=== PATIENT | male | born 1955 ===

== ENCOUNTER 2022-03-08 15:40 | Inpatient (IN) ==
[2022-03-08 20:47] LABS: Bacteria,Urine Few per hpf (None-Few); Basophils % 0.4 %; Bilirubin,Urine Negative (Negative); Blood,Urine Small (Negative); Clarity,Urine Clear (Clear); Color,Urine Colorless (Yellow); Eosinophils # 0.5 K/mcL (0.0-0.6); Eosinophils % 10.5 %; Glucose,Urine (UA) 200 mg/dL (Normal); Hemoglobin 9.7 g/dL (12.9-16.9); Immature Granulocytes % 0.2 % (0-4); Ketones,Urine Negative (Negative); Leukocyte Esterase,Urine Negative (Negative); Lymphocytes % 22.4 %; Mean Corpuscular HGB Conc 32.3 g/dL (31.6-35.5); Mean Corpuscular Hemoglobin 28.4 pg (28.0-33.3); Mean Corpuscular Volume 87.7 fL (83.0-100.0); Mean Platelet Volume 9.7 fL (9.4-12.4); Monocytes # 0.6 K/mcL (0.0-1.3); Monocytes % 12.9 %; Mucus,Urine Few per lpf (None-Few); Neutrophils # 2.4 K/mcL (1.6-8.9); Nitrite,Urine Negative (Negative); Platelet Count 175 K/mcL (140-400); Protein,Urine >=600 mg/dL (Neg-Trace); RBC,Urine 0-3 per hpf (0-3); Red Blood Count 3.42 M/mcL (4.19-5.50); Red Cell Distribution Width 13.2 % (11.5-14.5); Segmented Neutrophils % 53.6 %; Squamous Epithelial Cell,Urine Few per hpf (None-Few); Urobilinogen,Urine Normal (Normal); WBC,Urine 0-3 per hpf (0-3); White Blood Count 4.6 K/mcL (4.3-11.1)
[2022-03-08 20:50] LABS: VBG Ionized Calcium 1.14 mmol/L (1.15-1.35)
[2022-03-08 21:29] LABS: Bilirubin,Total 0.5 mg/dL (0.3-1.0); Globulin 4.2 g/dL (2.4-3.5); Magnesium 1.9 mg/dL (1.6-2.6); Phosphorous 3.7 mg/dL (2.7-4.5); Total Protein 8.2 g/dL (6.4-8.9); Troponin I 0.05 ng/mL (< 0.04)
[2022-03-08] MEDS ORDERED: *HR* Labetalol 20 MG/4 ML SYRINGE IVP ONE (21:39)
[2022-03-08] MEDS ORDERED: Naloxone 0.4 MG/ML INJ IVP PRN (22:00)
[2022-03-08] MEDS ORDERED: Ondansetron 4 MG/2 ML VIAL IVP PRN (22:28)
[2022-03-09] MEDS: Acetaminophen 325 MG TABLET PO PRN ×2 (01:49→14:53)
[2022-03-09] MEDS: Melatonin 3 MG TABLET PO PRN ×2 (01:50→23:51)
[2022-03-09 03:08] LABS: Basophils % 0.2 %; Eosinophils # 0.5 K/mcL (0.0-0.6); Eosinophils % 8.6 %; Hemoglobin 8.6 g/dL (12.9-16.9); Immature Granulocytes % 0.2 % (0-4); Lymphocytes # 0.9 K/mcL (0.6-4.6); Lymphocytes % 17.2 %; Mean Corpuscular HGB Conc 31.9 g/dL (31.6-35.5); Mean Corpuscular Hemoglobin 28.2 pg (28.0-33.3); Mean Corpuscular Volume 88.5 fL (83.0-100.0); Mean Platelet Volume 10.2 fL (9.4-12.4); Monocytes # 0.7 K/mcL (0.0-1.3); Monocytes % 12.4 %; Neutrophils # 3.2 K/mcL (1.6-8.9); Platelet Count 170 K/mcL (140-400); Red Blood Count 3.05 M/mcL (4.19-5.50); Segmented Neutrophils % 61.4 %; White Blood Count 5.2 K/mcL (4.3-11.1)
[2022-03-09 03:26] LABS: Calcium 8.6 mg/dL (8.6-10.3); Magnesium 1.8 mg/dL (1.6-2.6); Potassium 4.1 mEq/L (3.5-5.1)
[2022-03-09] MEDS: niCARdipine 20 MG/200 ML MLS IVC SCH ×4 (05:48→22:09)
[2022-03-09] MEDS: *HR* Heparin 5,000 UNIT/ML VIAL SQ SCH ×3 (05:52→20:21)
[2022-03-09 08:43] LABS: Troponin I 0.03 ng/mL (< 0.04)
[2022-03-09 08:49] LABS: Uric Acid 7.9 mg/dL (2.3-7.6)
[2022-03-09] MEDS: carvediloL 25 MG TABLET PO SCH ×2 (14:49→20:21)
[2022-03-09] MEDS: hydrALAZINE 25 MG TABLET PO SCH ×2 (14:49→20:20)
[2022-03-09] MEDS: cloNIDine HCL 0.1 MG TABLET PO SCH ×2 (14:49→20:21)
[2022-03-10] MEDS: niCARdipine 20 MG/200 ML MLS IVC SCH ×9 (01:32→22:29)
[2022-03-10 02:34] LABS: Basophils % 0.2 %; Eosinophils # 0.5 K/mcL (0.0-0.6); Eosinophils % 11.5 %; Hematocrit 26.2 % (37.5-50.1); Hemoglobin 8.6 g/dL (12.9-16.9); Immature Granulocytes % 0.2 % (0-4); Lymphocytes # 1.2 K/mcL (0.6-4.6); Lymphocytes % 28.4 %; Mean Corpuscular HGB Conc 32.8 g/dL (31.6-35.5); Mean Corpuscular Hemoglobin 28.5 pg (28.0-33.3); Mean Corpuscular Volume 86.8 fL (83.0-100.0); Monocytes # 0.4 K/mcL (0.0-1.3); Monocytes % 9.6 %; Neutrophils # 2.1 K/mcL (1.6-8.9); Platelet Count 174 K/mcL (140-400); Red Blood Count 3.02 M/mcL (4.19-5.50); Red Cell Distribution Width 13.1 % (11.5-14.5); Segmented Neutrophils % 50.1 %; White Blood Count 4.2 K/mcL (4.3-11.1)
[2022-03-10 02:54] LABS: Calcium 8.3 mg/dL (8.6-10.3); Potassium 4.2 mEq/L (3.5-5.1)
[2022-03-10 03:07] LABS: Thyroid Stimulating Hormone 4.594 mcIU/mL (0.340-5.600)
[2022-03-10 03:08] LABS: Triiodothyronine (T3) Free 2.8 pg/mL (2.50-3.90)
[2022-03-10] MEDS: *HR* Heparin 5,000 UNIT/ML VIAL SQ SCH ×3 (05:53→20:11)
[2022-03-10] MEDS: cloNIDine HCL 0.1 MG TABLET PO SCH ×2 (09:09→15:05)
[2022-03-10] MEDS: hydrALAZINE 25 MG TABLET PO SCH ×3 (09:10→20:07)
[2022-03-10] MEDS: amLODIPine 5 MG TABLET PO SCH (09:10)
[2022-03-10] MEDS: carvediloL 25 MG TABLET PO SCH ×2 (09:56→20:07)
[2022-03-10] MEDS: Iron Sucrose Complex 200 MG in 0.9 % Sodium Chloride 100 ML IVPB SCH (10:02)
[2022-03-10] MEDS ORDERED: *HR* Metoprolol 5 MG/5 ML VIAL IVP PRN (15:28)
[2022-03-10] MEDS ORDERED: CloNIDine Patch 0.3 MG PATCH (WEEKLY) TD SCH ×2 (16:00→21:00)
[2022-03-10] MEDS: Melatonin 3 MG TABLET PO PRN (20:23)
[2022-03-11] MEDS: niCARdipine 20 MG/200 ML MLS IVC SCH ×4 (02:30→20:49)
[2022-03-11] MEDS: *HR* Heparin 5,000 UNIT/ML VIAL SQ SCH ×3 (06:02→20:28)
[2022-03-11 06:36] LABS: Calcium 8.3 mg/dL (8.6-10.3); Potassium 4.3 mEq/L (3.5-5.1)
[2022-03-11] MEDS: hydrALAZINE 25 MG TABLET PO SCH ×3 (07:53→20:28)
[2022-03-11] MEDS: amLODIPine 5 MG TABLET PO SCH (07:53)
[2022-03-11] MEDS: carvediloL 25 MG TABLET PO SCH ×2 (07:53→20:28)
[2022-03-11] MEDS: Iron Sucrose Complex 200 MG in 0.9 % Sodium Chloride 100 ML IVPB SCH (07:55)
[2022-03-11] MEDS: cloNIDine HCL 0.1 MG TABLET PO SCH ×3 (09:57→20:28)
[2022-03-11] MEDS ORDERED: cloNIDine HCL 0.1 MG TABLET PO ONE (22:25)
[2022-03-11] MEDS: Melatonin 3 MG TABLET PO PRN (22:52)
[2022-03-12] MEDS: niCARdipine 20 MG/200 ML MLS IVC SCH ×7 (01:44→23:12)
[2022-03-12 02:55] LABS: Calcium 8.6 mg/dL (8.6-10.3); Potassium 4.5 mEq/L (3.5-5.1)
[2022-03-12] MEDS: *HR* Heparin 5,000 UNIT/ML VIAL SQ SCH ×3 (05:17→21:00)
[2022-03-12] MEDS: hydrALAZINE 25 MG TABLET PO SCH ×3 (08:30→20:59)
[2022-03-12] MEDS: amLODIPine 5 MG TABLET PO SCH (08:31)
[2022-03-12] MEDS: carvediloL 25 MG TABLET PO SCH ×2 (08:31→19:12)
[2022-03-12] MEDS ORDERED: cloNIDine HCL 0.1 MG TABLET PO SCH (09:00)
[2022-03-12] MEDS: Melatonin 3 MG TABLET PO PRN (21:00)
[2022-03-12] MEDS: Acetaminophen 325 MG TABLET PO PRN (21:00)
[2022-03-13] MEDS: *HR* Heparin 5,000 UNIT/ML VIAL SQ SCH ×3 (06:23→20:19)
[2022-03-13 06:57] LABS: Calcium 8.5 mg/dL (8.6-10.3); Potassium 4.4 mEq/L (3.5-5.1)
[2022-03-13] MEDS: 0.9 % Sodium Chloride 1,000 ML IVC SCH (08:36)
[2022-03-13] MEDS: hydrALAZINE 25 MG TABLET PO SCH ×3 (08:36→19:27)
[2022-03-13] MEDS: NIFEdipine XL (24 HR) 30 MG TAB.ER.24 PO SCH (08:36)
[2022-03-13] MEDS: carvediloL 25 MG TABLET PO SCH ×2 (09:03→20:20)
[2022-03-13] MEDS: niCARdipine 20 MG/200 ML MLS IVC SCH ×4 (09:03→21:22)
[2022-03-13] MEDS: *HR* Acetylcysteine 20% 600 MG/3 ML ORAL SYRINGE PO SCH ×2 (09:27→21:42)
[2022-03-13] MEDS: Acetaminophen 325 MG TABLET PO PRN (20:18)
[2022-03-13] MEDS: Melatonin 3 MG TABLET PO PRN (20:19)
[2022-03-14] MEDS: niCARdipine 20 MG/200 ML MLS IVC SCH ×6 (03:26→23:14)
[2022-03-14] MEDS: 0.9 % Sodium Chloride 1,000 ML IVC SCH (04:13)
[2022-03-14] MEDS: *HR* Heparin 5,000 UNIT/ML VIAL SQ SCH ×3 (04:13→20:38)
[2022-03-14 04:56] LABS: Hematocrit 26.3 % (37.5-50.1); Hemoglobin 8.5 g/dL (12.9-16.9); Mean Corpuscular HGB Conc 32.3 g/dL (31.6-35.5); Mean Corpuscular Hemoglobin 28.3 pg (28.0-33.3); Mean Corpuscular Volume 87.7 fL (83.0-100.0); Mean Platelet Volume 9.9 fL (9.4-12.4); Platelet Count 228 K/mcL (140-400); Red Cell Distribution Width 13.3 % (11.5-14.5)
[2022-03-14 05:03] LABS: White Blood Count 6.4 K/mcL (4.3-11.1)
[2022-03-14 05:12] LABS: Calcium 8.6 mg/dL (8.6-10.3); Potassium 4.7 mEq/L (3.5-5.1)
[2022-03-14] MEDS: hydrALAZINE 25 MG TABLET PO SCH ×3 (08:21→20:38)
[2022-03-14] MEDS: Isosorbide MONOnitrate (24 HR) 30 MG TAB.ER.24H PO SCH (08:21)
[2022-03-14] MEDS: carvediloL 25 MG TABLET PO SCH ×2 (08:21→20:38)
[2022-03-14] MEDS: NIFEdipine XL (24 HR) 30 MG TAB.ER.24 PO SCH (08:21)
[2022-03-14] MEDS ORDERED: Sennosides/Docusate Sodium TABLET PO PRN (21:37)
[2022-03-14] MEDS: Melatonin 3 MG TABLET PO PRN (22:18)
[2022-03-15 03:23] LABS: Calcium 8.7 mg/dL (8.6-10.3); Potassium 4.8 mEq/L (3.5-5.1)
[2022-03-15] MEDS: *HR* Heparin 5,000 UNIT/ML VIAL SQ SCH ×3 (05:35→20:58)
[2022-03-15] MEDS ORDERED: *HR* Heparin 10,000 UNIT/10 ML VIAL ONE (07:12)
[2022-03-15] MEDS ORDERED: 0.9 % Sodium Chloride 2,000 ML ONE (07:13)
[2022-03-15] MEDS ORDERED: Heparin 1,000 UNITS/500 mL 500 ML ONE (07:13)
[2022-03-15] MEDS ORDERED: Iopamidol - 300 100 ML INFUS..BTL ONE (07:13)
[2022-03-15] MEDS ORDERED: *HR* FentaNYL (PF) 100 MCG/2 ML VIAL ONE (07:35)
[2022-03-15] MEDS ORDERED: *HR* Midazolam HCl 2 MG/2 ML VIAL ONE (07:36)
[2022-03-15] MEDS: *HR* Acetylcysteine 20% 600 MG/3 ML ORAL SYRINGE PO SCH ×2 (08:41→20:58)
[2022-03-15] MEDS: carvediloL 25 MG TABLET PO SCH ×2 (08:42→19:52)
[2022-03-15] MEDS: hydrALAZINE 25 MG TABLET PO SCH ×3 (08:42→20:58)
[2022-03-15] MEDS: Isosorbide MONOnitrate (24 HR) 30 MG TAB.ER.24H PO SCH (08:42)
[2022-03-15] MEDS: NIFEdipine XL (24 HR) 30 MG TAB.ER.24 PO SCH (09:14)
[2022-03-15] MEDS: 0.9 % Sodium Chloride 1,000 ML IVC SCH (09:14)
[2022-03-15] MEDS: Acetaminophen 325 MG TABLET PO PRN (13:20)
[2022-03-15] MEDS ORDERED: polyethylene glycoL 3350 17 GM POWD.PACK PO PRN (15:02)
[2022-03-15] MEDS: Sennosides/Docusate Sodium TABLET PO SCH ×2 (15:21→20:58)
[2022-03-15] MEDS ORDERED: carvediloL 6.25 MG TABLET PO SCH (17:00)
[2022-03-16 03:58] LABS: Calcium 8.9 mg/dL (8.6-10.3); Potassium 4.5 mEq/L (3.5-5.1)
[2022-03-16 04:30] LABS: Magnesium 1.8 mg/dL (1.6-2.6)
[2022-03-16] MEDS: *HR* Heparin 5,000 UNIT/ML VIAL SQ SCH ×3 (05:21→20:42)
[2022-03-16] MEDS: 0.9 % Sodium Chloride 1,000 ML IVC SCH (05:21)
[2022-03-16] MEDS: Isosorbide MONOnitrate (24 HR) 30 MG TAB.ER.24H PO SCH (07:13)
[2022-03-16] MEDS: carvediloL 25 MG TABLET PO SCH ×2 (07:13→16:10)
[2022-03-16] MEDS: Sennosides/Docusate Sodium TABLET PO SCH ×2 (07:13→19:34)
[2022-03-16] MEDS: hydrALAZINE 25 MG TABLET PO SCH ×3 (07:14→19:34)
[2022-03-16] MEDS: *HR* Acetylcysteine 20% 600 MG/3 ML ORAL SYRINGE PO SCH ×2 (07:15→10:31)
[2022-03-16] MEDS ORDERED: NIFEdipine XL (24 HR) 60 MG TAB.ER.24 PO SCH ×2 (09:00→21:00)
[2022-03-16] MEDS: niCARdipine 20 MG/200 ML MLS IVC SCH ×2 (10:20→10:21)
[2022-03-16] MEDS ORDERED: NIFEdipine Immed Rel 10 MG CAPSULE PO STA (13:19)
[2022-03-16] MEDS ORDERED: *HR* Labetalol 20 MG/4 ML SYRINGE IVP PRN (17:28)
[2022-03-16] MEDS: *HR* Labetalol 20 MG/4 ML SYRINGE IVP PRN ×2 (17:49→19:07)
[2022-03-16] MEDS ORDERED: NIFEdipine XL (24 HR) 30 MG TAB.ER.24 PO SCH (21:00)
[2022-03-17 03:29] LABS: Hematocrit 27.2 % (37.5-50.1); Hemoglobin 8.6 g/dL (12.9-16.9); Mean Corpuscular HGB Conc 31.6 g/dL (31.6-35.5); Mean Corpuscular Hemoglobin 28.2 pg (28.0-33.3); Mean Corpuscular Volume 89.2 fL (83.0-100.0); Mean Platelet Volume 10.4 fL (9.4-12.4); Platelet Count 228 K/mcL (140-400); Red Blood Count 3.05 M/mcL (4.19-5.50); Red Cell Distribution Width 13.9 % (11.5-14.5); White Blood Count 4.9 K/mcL (4.3-11.1)
[2022-03-17 03:46] LABS: Calcium 9.1 mg/dL (8.6-10.3); Magnesium 1.9 mg/dL (1.6-2.6); Potassium 4.6 mEq/L (3.5-5.1)
[2022-03-17] MEDS: *HR* Heparin 5,000 UNIT/ML VIAL SQ SCH (05:48)
[2022-03-17 06:57] VITALS: TEMP 97.9
[2022-03-17] MEDS: carvediloL 25 MG TABLET PO SCH (08:57)
[2022-03-17] MEDS: Isosorbide MONOnitrate (24 HR) 30 MG TAB.ER.24H PO SCH (08:57)
[2022-03-17] MEDS: hydrALAZINE 25 MG TABLET PO SCH (08:57)
[2022-03-17] MEDS: Sennosides/Docusate Sodium TABLET PO SCH (08:57)
[2022-03-17 09:04] VITALS: BP 163/63; PULSE 62; O2SAT 18
== END 2022-03-17 10:39 | disposition home or self-care (01) | DRG 305 ==
LOC: EMEROOARM 15:40 → 2NNU 23:26 → SUATTDRO 23:26 → 2NNU 03-09 00:59
PROVIDERS: ADMIT Internal Medicine; ATTEND Internal Medicine